=== PATIENT | male | born 1995 | race Two or more races ===

== ENCOUNTER 2023-02-05 22:41 | Emergency (ER) | payer MEDICAID ==
[~2023-02-05] VITALS: Ht 188 cm; Wt 98.0 kg
[2023-02-05 23:31] VITALS: TEMP 98
[2023-02-06] MEDS ORDERED: IBUPROFEN 400 MG TABLET PO ONE
[2023-02-06] MEDS ORDERED: IBUPROFEN 400 MG TABLET ONE (00:10)
[2023-02-06 01:21] VITALS: BP 107/81; O2SAT 99
== END 2023-02-06 01:21 | disposition home or self-care (01) ==
LOC: ER 22:43
DX: S39.012A Strain of muscle, fascia and tendon of lower back, initial encounter (principal); F17.200 Nicotine dependence, unspecified, uncomplicated; W51.XXXA Accidental striking against or bumped into by another person, initial encounter; Y93.89 Activity, other specified; Y92.89 Other specified places as the place of occurrence of the external cause; Y99.8 Other external cause status
CPT/HCPCS: 72131-TC